=== PATIENT | female | born 1975 | race Caucasian/White ===

== ENCOUNTER 2017-04-10 21:07 | Emergency (ER) | payer OTHER ==
[~2017-04-10] VITALS: Ht 157.4 cm; Wt 83.5 kg
[~2017-04-10 21:07] MED LIST: FLEXERIL5 MG PO; REGLAN10 MG PO; VOLTAREN50 M1 PO
[2017-04-10 21:13] VITALS: BP 134/83
[2017-04-10] MEDS ORDERED: ZITHROMAX250 MG PO (21:59)
[2017-04-10] MEDS ORDERED: PROAIR HFA8.5 GM INH (21:59)
[2017-04-10] MEDS ORDERED: MEDROL DOSEPAK4 MG PO (21:59)
== END 2017-04-10 22:21 | disposition home or self-care (01) ==
LOC: ED 21:07
DX: J06.9 Acute upper respiratory infection, unspecified (principal); H65.93 Unspecified nonsuppurative otitis media, bilateral; Z79.899 Other long term (current) drug therapy

== ENCOUNTER 2018-04-05 13:43 | Emergency (ER) | payer OTHER ==
[~2018-04-05] VITALS: Ht 157.4 cm; Wt 83.5 kg
[2018-04-05 13:43] VITALS: BP 140/84
[~2018-04-05 13:43] MED LIST changes: +MEDROL DOSEPAK4 MG PO; +PROAIR HFA8.5 GM INH; +ZITHROMAX250 MG PO
[2018-04-05] MEDS ORDERED: NAPROSYN500 MG PO (14:11)
[2018-04-05] MEDS ORDERED: CLINDAMYCIN150 MG PO (14:11)
[2018-04-05] MEDS ORDERED: ZOFRAN4 MG PO (14:11)
[2018-04-05] MEDS ORDERED: Peridex 473 ML473 ML PO (14:11)
== END 2018-04-05 14:18 | disposition home or self-care (01) ==
LOC: ED 13:43
DX: K04.7 Periapical abscess without sinus (principal); K02.9 Dental caries, unspecified; R03.0 Elevated blood-pressure reading, without diagnosis of hypertension

== ENCOUNTER 2019-01-24 21:26 | Emergency (ER) | payer OTHER ==
[~2019-01-24] VITALS: Ht 157.4 cm; Wt 81.6 kg
[~2019-01-24 21:26] MED LIST changes: +CLINDAMYCIN150 MG PO; +NAPROSYN500 MG PO; +Peridex 473 ML473 ML PO; +ZOFRAN4 MG PO
[2019-01-24 21:28] VITALS: BP 130/78
[2019-01-24] MEDS ORDERED: AUGMENTIN 875-875 MG PO (22:51)
== END 2019-01-24 23:08 | disposition home or self-care (01) ==
LOC: ED 21:26
DX: J06.9 Acute upper respiratory infection, unspecified (principal); J32.9 Chronic sinusitis, unspecified; J02.9 Acute pharyngitis, unspecified

== ENCOUNTER 2019-03-27 12:18 | Emergency (ER) | payer OTHER ==
[~2019-03-27] VITALS: Ht 157.4 cm; Wt 83.9 kg
[~2019-03-27 12:18] MED LIST changes: +AUGMENTIN 875-875 MG PO
[2019-03-27 12:27] VITALS: BP 124/85
== END 2019-03-27 15:30 | disposition home or self-care (01) ==
LOC: ED 12:18
DX: S09.90XA Unspecified injury of head, initial encounter (principal); G43.909 Migraine, unspecified, not intractable, without status migrainosus; V89.2XXA Person injured in unspecified motor-vehicle accident, traffic, initial encounter; Y93.89 Activity, other specified; Y92.89 Other specified places as the place of occurrence of the external cause; Y99.8 Other external cause status

== ENCOUNTER 2019-11-15 16:29 | Emergency (ER) | payer OTHER ==
[~2019-11-15] VITALS: Wt 80.7 kg
[2019-11-15 16:43] VITALS: BP 131/85
== END 2019-11-15 20:00 | disposition home or self-care (01) ==
LOC: ED 16:29
DX: S00.83XA Contusion of other part of head, initial encounter (principal); V89.2XXA Person injured in unspecified motor-vehicle accident, traffic, initial encounter; Y93.89 Activity, other specified; Y92.89 Other specified places as the place of occurrence of the external cause; Y99.8 Other external cause status

== ENCOUNTER 2025-01-12 12:53 | Emergency (ER) | payer OTHER ==
[~2025-01-12] VITALS: Ht 157.4 cm; Wt 76.2 kg
[2025-01-12 12:57] VITALS: BP 153/96
[2025-01-12] MEDS ORDERED: PENICILLIN V POTASSIUM 500 MG TAB PO ONE (13:15)
[2025-01-12] MEDS ORDERED: Acetaminophen/Hydrocodone 5 MG/325 MG TABLET PO ONE (13:15)
[2025-01-12] MEDS ORDERED: PENICILLIN VK500 MG PO (13:19)
[2025-01-12] MEDS ORDERED: NAPROSYN500 MG PO (13:19)
== END 2025-01-12 13:26 | disposition home or self-care (01) ==
LOC: ED 12:53
DX: K04.7 Periapical abscess without sinus (principal)